=== PATIENT | male | born 1950 | race Caucasian/White ===

== ENCOUNTER 2018-09-24 13:20 | Day surgery (SDC) | payer MEDICARE, OTHER ==
[~2018-09-24] VITALS: Ht 188 cm; Wt 124.4 kg
[2018-09-24] VITALS (9 sets, daily range): BP systolic 131–169; BP diastolic 74–89; PULSE 59–92; TEMP 97.5–97.8
[2018-09-24] MEDS ORDERED: PROSCAR 5MG5 MG PO (13:56)
[2018-09-24] MEDS ORDERED: GLUCOPHAGE500 MG/TAB PO (13:58)
[2018-09-24] MEDS ORDERED: PROTONIX 40MG T40 MG PO (13:58)
[2018-09-24] MEDS ORDERED: NORVASC 5MG5 MG/TAB PO (13:58)
[2018-09-24] MEDS ORDERED: GLUCOTROL XL5 MG/TAB PO (13:58)
[2018-09-24] MEDS ORDERED: FLONASEALLERGY NS (13:59)
[2018-09-24] MEDS ORDERED: CRANBERRY FRUI425 MG PO (13:59)
[2018-09-24] MEDS ORDERED: LOTSPY TOP (14:00)
[2018-09-24] MEDS ORDERED: ADVIL200 MG PO (14:00)
[2018-09-24] MEDS ORDERED: TYLENOL 325MG325 MG PO (14:01)
--- NOTE | 2018-09-24 19:45 | NUR ---
Pt. arrived to the floor in bed from PACU. Pt. is A&OX3. IV to lt. wrist patent, IV fluids infusing per orders. Three-way francisco with CBI running. Urine is pink and clear. Pt. reports legs are still numb. Pt. tolerating CL diet. Pt. denies pain or other needs, call light within reach.
[2018-09-25] VITALS (7 sets, daily range): BP systolic 113–147; BP diastolic 49–82; PULSE 78–96; TEMP 98–98.8
--- NOTE | 2018-09-25 08:00 | NUR ---
PATIENT SITTING UP IN BED THIS MORNING WITH HIS BREAKFAST TRAY AT THE BEDSIDE. PATIENT IS A&O. VSS. BOWEL SOUNDS ACTIVE ALL FOUR QUADRANTS. PATIENT TOLERATING FOOD & LIQUIDS WITHOUT ANY COMPLAINTS OF N/V. POSITIVE PEDAL PULSES EQUAL BILATERALLY. 3-WAY CORBETT CATHETER TO DEPENDENT DRAINAGE WITH CBI RUNNING AT A SLOW TO MODERATE RATE. LARGE AMOUNTS OF DARK RED URINE WITH CLOTS PRESENT IN CORBETT BAG. PATIENT INDEPENDENT WITHIN ROOM. LEFT WRIST TO INT. CALL LIGHT WITHIN REACH. PATIENT DENIES ANY OTHER NEEDS AT THIS TIME.
--- NOTE | 2018-09-25 16:01 | NUR ---
SW and SW student met with patient to discuss discharge planning. Patient [place] the country outside of [place], [place] with his [place]. Patients PCP is ALBERTO Heller at [facility] and he obtains his medications from [facility] pharmacy. Patient reports they had DPOA in the past but he doesn't know where it is. SW provided him with the form and will follow up tomorrow. THere are no other anticipated discharge needs at this time.
--- NOTE | 2018-09-25 16:26 | NUR ---
SUPERINTENDENT [employer]MINAL REPORTED SMALL AMOUNTS BLOOD COMING AROUND THE PATIENT'S CORBETT CATHETER INSERTION SITE. UPON ASSESSMENT TAPE HOLDING CORBETT IN PLACE ON LEG HAD COME OFF. CORBETT AND CBI TUBING REPOSITIONED AND SECURED TO LEG. WILL CONTINUE TO MONITOR.
--- NOTE | 2018-09-25 19:00 | NUR ---
REPORT GIVEN TO RICARDO RIVERA.
--- NOTE | 2018-09-25 21:00 | NUR ---
Patient up walking hallways. Has CBI at slow rate, francisco to BSD with pink tinged urine. Denies pain. Refuses stool softner due to several stools today.
--- NOTE | 2018-09-26 02:49 | NUR ---
Patient has catheter pinched below insertion site, after straightening tubing urine flow increased, CBI ran quickly for short time then backed down to slow drip. Will monitor for changes.
[2018-09-26 04:58] VITALS: BP 136/61; PULSE 71; TEMP 98.6
[2018-09-26 08:00] VITALS: BP 134/86; PULSE 85; TEMP 97.2
[2018-09-26 12:00] VITALS: BP 129/77; PULSE 84; TEMP 98.4
--- NOTE | 2018-09-26 12:35 | NUR ---
First visit from the insole lip turner. No needs right now.
--- NOTE | 2018-09-26 12:40 | NUR ---
IV CATHETER TAKEN OUT OF LEFT WRIST WITH NO ISSUES NOTED. NO INFILTRATION OR PHLEBITIS. PATIENT DENIED PAIN TO THE SITE. REPORT GIVEN TO RICARDO WAN
--- NOTE | 2018-09-26 12:42 | NUR ---
PATIENT'S CATHETER WAS PRIMED WITH 200ML OF NS. BALLOON WAS DEFLATED WITH A REMOVAL OF 33CC. CATHETER WAS PULLED WITH NO COMPLICATIONS. JAYCEE CARE WAS GIVEN TO PATIENT. REPORT GIVEN TO RICARDO WAN
--- NOTE | 2018-09-26 12:46 | NUR ---
REPORT RECEIVED AT 0700 FROM RICARDO WAN. THIS NURSE WENT INTO PATIENT'S ROOM AND INTRODUCED SELF. PATIENT IS ALERT AND ORIENTED X3. PATIENT IS ABLE TO AMBULATE ON OWN. PATIENT DENIED ANY PAIN. MEDICATIONS WERE GIVEN AT SCHEDULED TIME WITH NO PROBLEMS NOTED. PATIENT ATE 100% OF BREAKFAST. NO PRN MEDICATIONS GIVEN TO PATIENT. REPORTED OFF TO RICARDO WAN
--- NOTE | 2018-09-26 13:32 | NUR ---
PATIENT LAYING IN BED READING. PATIENT REPORTS NO PAIN AT THIS TIME. PATIENT IS TO BE DISCHARGED LATER TODAY. PATIENT HAS NO COMPLAINTS AT THIS TIME. BED IN LOW POSITION AND CALL LIGHT WITHIN REACH. REPORTED OFF TO RICARDO WAN
--- NOTE | 2018-09-26 14:25 | NUR ---
Patient is discharging home. Explained discharge instructions. Copies of discharge instructions given to patient. No prescriptions. follow up scheduled for patient. All belongings packed up and sent with patient. Patient walked out with this nurse.
== END 2018-09-26 14:30 | disposition home or self-care (01) ==
LOC: SDCO 13:20 → SURG 19:45 → SDCO 09-26 14:30
DX: N40.1 Benign prostatic hyperplasia with lower urinary tract symptoms (principal); N13.8 Other obstructive and reflux uropathy; R33.8 Other retention of urine; N21.0 Calculus in bladder; R35.0 Frequency of micturition; R39.15 Urgency of urination; R39.12 Poor urinary stream; E11.9 Type 2 diabetes mellitus without complications; I10 Essential (primary) hypertension; K21.9 Gastro-esophageal reflux disease without esophagitis; E66.9 Obesity, unspecified; Z68.34 Body mass index [BMI] 34.0-34.9, adult; J30.2 Other seasonal allergic rhinitis; Z98.52 Vasectomy status; Z79.84 Long term (current) use of oral hypoglycemic drugs; Z83.3 Family history of diabetes mellitus; Z80.3 Family history of malignant neoplasm of breast; Z82.3 Family history of stroke; Z82.49 Family history of ischemic heart disease and other diseases of the circulatory system
CPT/HCPCS: OP; J0690; J2250; J2704; J3010; J3480; J7120